=== PATIENT | male | born 1990 | race Asian ===

== ENCOUNTER 2025-08-12 19:49 | Emergency (ER) | payer SELFPAY ==
--- NOTE | ~2025-08-12 | CT_ITS ---
CT ABDOMEN AND PELVIS WITHOUT CONTRAST Clinical History: hernia Comparison: Hernia Technique: Unenhanced axial images lung bases to symphysis pubis Coronal, sagittal reformats CT images acquired with automatic exposure control for dose reduction DLP: 468 mGy-cm Findings: Without intravenous contrast, sensitivity for detecting visceral parenchymal abnormalities decreased. Lung bases: Clear. Visualized heart and pericardium: Unremarkable. Liver: Unremarkable. Gallbladder: Unremarkable. Spleen: Unremarkable. Pancreas: Unremarkable. Adrenal glands: Unremarkable. Kidneys: Right kidney- No hydronephrosis. No renal stones. Left kidney- No hydronephrosis. No renal stones. Distal esophagus/stomach: Unremarkable. Small bowel loops: Normal caliber and wall thickness. Colon: Diverticula. Normal caliber and wall thickness. Normal RLQ appendix. Nodes: No enlarged nodes. Peritoneum: No ascites. No free intraperitoneal air. Urinary bladder: Unremarkable. Prostate: Unremarkable. Bones: No acute bony abnormality. Soft tissues: Umbilical hernia with fat. Unopacified abdominal aorta: No aneurysmal dilatation. IMPRESSION: 1. No acute findings. 2. Umbilical hernia with fat. No evidence of fat strangulation or panniculitis. 3. Other findings as above. Reviewed, dictated and finalized at location R. IMPRESSION: 1. No acute findings. 2. Umbilical hernia with fat. No evidence of fat strangulation or panniculitis . 3. Other findings as above.
--- NOTE | ~2025-08-12 | US_ITS ---
EXAMINATION: US scrotum doppler DATE: 08/12/2025 20:46 INDICATION: Left-sided scrotal palpable abnormality TECHNIQUE: Testicular sonogram utilizing grayscale and Doppler COMPARISON: None. FINDINGS: The right testis measures 4.0 x 2.4 x 2.3 cm. The left testis measures 4.1 x 2.4 x 2.0 cm. Symmetric normal grayscale appearance to both testes. There is normal vascular flow to both testes. The right epididymis is normal with normal vascular flow. 7 mm and 3-4 mm anechoic left epididymal cysts. The left epididymis is normal with normal vascular flow. There is no varicocele or hydrocele. IMPRESSION: 1. A couple left epididymal cyst measuring 3-4 mm and 7 mm. Otherwise unremarkable scrotal ultrasound. Reviewed, dictated and finalized at location A. IMPRESSION: 1. A couple left epididymal cyst measuring 3-4 mm and 7 mm. Otherwise unremark able scrotal ultrasound.
[2025-08-12 20:12] VITALS: BP 129/82; PULSE 77; RESP 16; TEMP 36.5; O2SAT 98
[2025-08-12 23:12] LABS: Hematocrit 42.0 % (42.0-52.0); Hemoglobin 15.5 g/dL (14.0-18.0); Immature Granulocyte Percent A 0.4 % (0-0.5); Lymphocytes Absolute Auto 3.25 K/mm3 (0.9-3.2); Mean Corpuscular HGB Conc 36.9 g/dl (32-36); Mean Corpuscular Hemoglobin 32.5 pg (26-34); Mean Corpuscular Volume 88.1 fl (80-100); Nucleated Red Blood Cells Absolute Auto 0.000 K/mm3 (0.0-0.012); Nucleated Red Blood Cells Perc 0.0 % (0.0-0.2); Platelet Count Result 186 k/mm3 (150-375); Red Blood Count 4.77 M/mm3 (4.6-6.20); White Blood Count 9.1 K/mm3 (4.5-10.0)
[2025-08-12 23:22] LABS: Alanine Aminotransferase 40 U/L (6-50); Albumin Level 5.0 g/dL (3.5-5.1); Alkaline Phosphatase 44 U/L (38-126); Anion Gap 11 mmol/L (4-12); Aspartate Amino Transferase 33 U/L (17-59); Bilirubin,Total 1.5 mg/dL (0.2-1.3); Blood Urea Nitrogen 27 mg/dL (9-20); Calcium 9.4 mg/dL (8.4-10.2); Carbon Dioxide 23 mmol/L (22-30); Chloride 104 mmol/L (98-107); Estimated CRCL calculation 78 ml/min; Estimated Glomerular Filt Rate > 60; Glucose 94 mg/dL (65-110); Lipase 191 U/L (23-300); Potassium 4.0 mmol/L (3.4-5.0); Sodium 138 mmol/L (137-145); Total Protein 8.5 g/dL (6.3-8.2)
[2025-08-12 23:42] LABS: Add Urine Microscopic? NO; Appearance Urine Clear (Clear); Glucose Urine UA Negative (Negative); Leukocyte Esterase Ur Negative LEU/UL (Negative); Nitrate Urine Negative (Negative); Specific Grav Ur 1.031 (1.001-1.035)
[2025-08-12 23:48] VITALS: BP 112/82; PULSE 60; RESP 17; O2SAT 96
--- OUTSIDE RECORDS SUMMARY | 2025-08-13 01:00 | XMS_ITS ---
Author Organization Unknown ENCOUNTERS Encounter Performer Location Date Diagnosis Diagnosis Status Emergency [place] [id number] [place] [address] [id number] Pre Admit [facility] [address] [place] [address] [id number] Emergency ANNIE [facility] [address] [place] [address] [id number] *Note: Encounters from your own facility or health system may be excluded. Allergies, Adverse Reactions, Alerts Allergen Type Severity Identification Date Medications Name Date Quantity Days Supplied GPI Number
--- NOTE | 2025-08-13 01:28 | ED.ABDPAIN ---
HPI - Abdominal Pain General Chief Complaint: Abdominal Pain Stated Complaint: hernia Time Seen by Provider: 08/13/25 00:44 Source: patient Mode of arrival: ambulatory Limitations: no limitations History of Present Illness HPI narrative: This is a 35 year old male that presents to the emergency department for two complaints. Reporting pain, hernia of his umbilicus. Also reporting left testicular pain. Denies fever, vomiting, dysuria, hematuria. Related Data Home Medications ?Medication ?Instructions ?Recorded ?Confirmed ?Last Taken ?Type No Home Medications 08/12/25 08/12/25 Unknown History Allergies Allergy/AdvReac Type Severity Reaction Status Date / Time No Known Allergies Allergy Verified 08/12/25 20:15 Review of Systems Review of Systems: All systems reviewed & are unremarkable except as noted in HPI and below Exam Narrative: GENERAL: Well-appearing, well-nourished, and in no acute distress. HEAD: Normocephalic, atraumatic. EYES: EOMI. CHEST: Clear to auscultation. No respiratory distress. No wheezes rales or rhonchi HEART: Regular rate and rhythm. No murmur heard. Normal peripheral pulses. ABDOMEN: Soft, nontender, nondistended, normal active bowel sounds. Small umbilical hernia present, easily reduced EXTREMITIES: Normal range of motion. No edema. SKIN: Warm, dry, no rash. NEURO: No focal deficits. Alert and oriented x3. PSYCH: Normal mood and affect Course Vital Signs Vital signs: Vital Signs Temperature 97.7 F 08/12/25 20:12 Pulse Rate 77 08/12/25 20:12 Respiratory Rate 16 08/12/25 20:12 Blood Pressure 129/82 08/12/25 20:12 Pulse Oximetry 98 08/12/25 20:12 Oxygen Delivery Room Air 08/12/25 20:12 Temperature 97.7 F 08/12/25 20:12 Pulse Rate 60 08/12/25 23:48 Respiratory Rate 17 08/12/25 23:48 Blood Pressure 112/82 08/12/25 23:48 Pulse Oximetry 96 08/12/25 23:48 Oxygen Delivery Room Air 08/12/25 20:12 MDM - Abdominal Pain MDM Narrative Medical decision making narrative: Patient presents the emergency department with 2 complaints. Reporting pain around his umbilical hernia, also reporting testicular pain. He is afebrile and nontoxic appearing. His vitals are stable. Cbc without leukocytosis. Metabolic panel without concerning findings. Urine without evidence of infection. CT abdomen and pelvis shows an umbilical hernia with fat. Scrotal ultrasound shows a couple left-sided epididymal cysts. Patient updated on his workup and agrees with plan of care. He is to follow up with Urology and General surgery. He was given warnings to return to the ER Differential Diagnosis Differential diagnosis: Likely abdominal pain, calculus of kidney and other (umbilical hernia, UTI) Lab Data Attestation: I reviewed the patient's lab results. 08/12/25 23:01 08/12/25 23:01 Labs: Lab Results 08/12/25 08/12/25 Range/Units 23:01 23:35 WBC 9.1 (4.5-10.0) K/mm3 RBC 4.77 (4.6-6.20) M/mm3 Hgb 15.5 (14.0-18.0) g/dL Hct 42.0 (42.0-52.0) % MCV 88.1 (80-100) fl MCH 32.5 (26-34) pg MCHC 36.9 H (32-36) g/dl RDW 12.3 (11.5-14.5) % Plt Count 186 (150-375) k/mm3 MPV 9.3 (7.4-10.4) fl Immature Gran % (Auto) 0.4 (0-0.5) % Neut % (Auto) 51.0 (45.5-73.1) % Lymph % (Auto) 35.7 (18.3-44.2) % Crosby % (Auto) 9.1 H (2.6-8.5) % Eos % (Auto) 3.0 (0-4.4) % Baso % (Auto) 0.8 (0.2-1.2) % Lymph # (Auto) 3.25 H (0.9-3.2) K/mm3 Crosby # (Auto) 0.8 H (0.1-0.6) K/mm3 Eos # (Auto) 0.3 (0-0.3) K/mm3 Baso # (Auto) 0.1 (0.0-0.1) K/mm3 Abs Immat Gran (auto) 0.04 H (0.00-0.031) K/mm3 Absolute Neuts (auto) 4.7 (1.3-6.7) K/mm3 Absolute Nucleated RBC 0.000 (0.0-0.012) K/mm3 Nucleated RBC % 0.0 (0.0-0.2) % Sodium 138 (137-145) mmol/L Potassium 4.0 (3.4-5.0) mmol/L Chloride 104 (98-107) mmol/L Carbon Dioxide 23 (22-30) mmol/L Anion Gap 11 (4-12) mmol/L BUN 27 H (9-20) mg/dL Creatinine 1.08 (0.7-1.3) mg/dL Estim Creat Clear Calc 78 ml/min Estimated GFR > 60 (59 - ) Glucose 94 (65-110) mg/dL Calcium 9.4 (8.4-10.2) mg/dL Total Bilirubin 1.5 H (0.2-1.3) mg/dL AST 33 (17-59) U/L ALT 40 (6-50) U/L Alkaline Phosphatase 44 (38-126) U/L Total Protein 8.5 H (6.3-8.2) g/dL Albumin 5.0 (3.5-5.1) g/dL Lipase 191 (23-300) U/L Urine Color Yellow (Yellow) Urine Appearance Clear (Clear) Urine pH 5.5 (5.0-9.0) Ur Specific Armstrong 1.031 (1.001-1.035) Urine Protein Negative (Negative) mg/dL Urine Glucose (UA) Negative (Negative) mg/dL Urine Ketones Negative (Negative) mg/dL Ur Blood (Man) Negative (Negative) Urine Nitrate Negative (Negative) Urine Bilirubin Negative (Negative) Urine Urobilinogen 1.0 (<2.0) mg/dL Leukocyte Esterase Rfl Negative (Negative) LAST/UL Imaging Data Radiologist's impression: ITS Impressions Abdomen/Pelvis CT 08/12/25 20:36 IMPRESSION: 1. No acute findings. 2. Umbilical hernia with fat. No evidence of fat strangulation or panniculitis. 3. Other findings as above. Scrotum Ultrasound 08/12/25 21:37 IMPRESSION: 1. A couple left epididymal cyst measuring 3-4 mm and 7 mm. Otherwise unremarkable scrotal ultrasound. Critical Care Time Critical Care Time Critical Care Time: No Discharge Plan Discharge Clinical Impression: Left testicular pain, Cyst of epididymis Hernia, umbilical Qualifiers: Obstruction and gangrene presence: without obstruction or gangrene Qualified Code(s): K42.9 - Umbilical hernia without obstruction or gangrene Patient Disposition: Home Condition: Stable Instructions: Umbilical Hernia (ED), Testicle Pain (ED) Additional Instructions: Return to the ER if you experience fever, abdominal pain with nausea and vomiting, you are unable to keep down liquids or solids, or any other symptoms that are concerning to you Wear good scrotal supporting underwear. Tylenol or Ibuprofen as needed for pain Follow up with primary care doctor Patient Language: Unknown Prescriptions: No Action No Home Medications Follow-up/Referrals: Guy Mcintyer MD [Physician, Urology] Lashaun Hatfield MD [Physician, General Surgery] PHYSICIAN,[employer] [Primary Care Provider, Internal Medicine]
== END 2025-08-13 01:40 | disposition home or self-care (01) ==
PROVIDERS: Emergency Medicine; Emergency Provider Physician Assistant
DX: N50.3 Cyst of epididymis (principal); K42.9 Umbilical hernia without obstruction or gangrene
CPT/HCPCS: 36415; 74176; 76870; 80053; 81003; 83690; 85025; 93976; 99284